=== PATIENT | male | born 1955 | race Caucasian/White ===

== ENCOUNTER 2016-07-17 08:36 | Inpatient (IN) | payer OTHER, MEDICAID ==
[~2016-07-17] VITALS: Ht 167.6 cm; Wt 80.8 kg
[2016-07-17] VITALS (12 sets, daily range): BP systolic 129–147; BP diastolic 77–98; PULSE 84–100; RESP 18–20; O2SAT 90–97
[~2016-07-17 08:36] MED LIST: ALBU18HF INH; FLUT12AE4 INH; HYDR25TA4 PO; METO50TA3 PO; MIRT15TA6 PO; NITR0.4T6 SL; SERT100T9 PO; SYMINH INH
--- NOTE | 2016-07-17 08:48 | ED.REPORT ---
HPI-Abd Pain M 40 and Over Date of Service Jul 17, 2016 ED Provider: Angelina Person MD Nursing Notes Stated Complaint: ABDOMINAL PAIN Chief Complaint: Male Abdominal Pain Nursing Notes Reviewed: Yes Allergies: Coded Allergies: lisinopril (Verified Allergy, Severe, ANGIODEDEMA, 07/17/16) codeine (Verified Allergy, Unknown, 07/17/16) Scheduled Budesonide/Formoterol 160-4.5 mcg Inh (Symbicort 160-4.5 mcg Inh) 120 Puff Inhaler 2 PUFFS INH BID Hydrochlorothiazide (Hydrochlorothiazide) 25 Mg Tablet 25 MG PO DAILY Metoprolol Tartrate (Metoprolol Tartrate) 50 Mg Tablet 50 MG PO BID Sertraline HCl (Sertraline) 100 Mg Tablet 100 MG PO BID Scheduled PRN Albuterol Sulfate (Ventolin HFA Inhaler) 200 Puff/18 Gm Inhaler 2 PUFFS INH Q4H PRN PRN For Shortness of Breath Fluticasone/Salmeterol (Advair Hfa 115-21 Mcg Inhaler) 12 Gm Hfa.aer.ad 1-2 PUFF INH HS PRN PRN For Shortness of Breath Mirtazapine (Mirtazapine) 15 Mg Tablet 15 MG PO HS PRN PRN Insomnia Nitroglycerin SL (Nitroglycerin SL) 0.4 Mg Tab.subl 0.4 MG SL PRN PRN PRN For Chest Pain 1 TAB SL Q5MIN UP TO 3 DOSES FOR CP, CALL 911 IF UNRELIEVED General Time Seen by MD: 08:48 Chief Complaint Abdominal pain Hx Obtained From: Patient Arrived By: Walk-in Sudden in Onset?: No Onset Occurred: 3 days ago Symptom Duration: Since onset Location: : Abdomen lower Quality: Painful Associated with: Reports: Nausea Pertinent Negative: Pt denies other symptoms Past Medical History Past Medical History Pneumonia IBS Reports: Hypertension Reports: Atrial fibrillation Past Surgical History Cardiac catheterization Ankle surgery Smoking History Current Every Day Smoker Social History +alcohol use in the past Other Social History: Local resident Ambulatory Status Independent Review of Systems GI: Reports: Abdominal pain Complete sys rev & neg: except as marked. Physical Exam Initial Vital Signs Vital Signs (First) Date Time Temp Pulse Resp B/P Pulse Ox O2 Delivery O2 Flow Rate FiO2 07/17/16 08:41 38.7 84 20 147/98 94 Room Air Initial VS: Reviewed Interpretation & Diagnostics Lab Results Interpretation Result Diagram: 07/17/16 0850 Test 07/17/16 08:50 White Blood Count 11.0th/mm3 (3.8-10.1) Red Blood Count 4.38mil/mm3 (4.40-5.80) Hemoglobin 14.9g/dL (13.8-17.2) Hematocrit 42.4% (41.0-50.0) Mean Corpuscular Volume 96.8fL (81-100) Mean Corpuscular Hemoglobin 34.0pg (27.0-35.0) Mean Corpuscular Hemoglobin Concent 35.1% (32.0-37.0) Red Cell Distribution Width 13.0% (12.3-15.4) Platelet Count 188bil/L (150-400) Neutrophils (%) (Auto) 82.2% (40-74) Lymphocytes (%) (Auto) 8.2% (14-46) Monocytes (%) (Auto) 7.3% (4-12) Eosinophils (%) (Auto) 1.5% (0-5) Basophils (%) (Auto) 0.4% (0-3) Re-Eval/Medical Decision Source of Hx: Old records Counseled Regarding: Diagnosis, Lab results Discharge & Departure Vital Signs - All Vital Signs Date Time Temp Pulse Resp B/P Pulse Ox O2 Delivery O2 Flow Rate FiO2 07/17/16 08:41 38.7 84 20 147/98 94 Room Air )( All Prior VS Reviewed: Yes Condition: Stable Referrals: OSVALDO JEFFREY DO (PCP) Saloni Attestation Portions of this note were transcribed by Abram Sampson. I, Dr. Person, personally performed the history, physical exam and medical decision-making; I reviewed and confirmed the accuracy of the information in the transcribed note. Signed by: Saloni Ríos, 07/17/2016 and [time]. copies to: OSVALDO JEFFREY Shawna L MD Jul 17, 2016 08:48 ABRAM SAMPSON Jul 17, 2016 08:55
[2016-07-17 09:02] LABS: BASOPHILS % (AUTO) 0.4 % (0-3); EOSINOPHILS % (AUTO) 1.5 % (0-5); MONOCYTES % (AUTO) 7.3 % (4-12); Mean Corpuscular Volume 96.8 fL (81-100); NEUTROPHILS % (AUTO) 82.2 % (40-74); Platelet Count 188 bil/L (150-400)
--- NOTE | 2016-07-17 09:21 | ED.REPORT ---
HPI-Abd Pain M 40 and Over Date of Service Jul 17, 2016 ED Provider: Jono Wiseman MD Pt is a 61 y/o male w/ a hx of ulcerative colitis, IBS, COPD, prev H. pylori, HTN, presenting to the ED c/o gradually worsening, intermittent, sharp LLQ abdominal pain onset 2 days ago. He c/o associated decreased urination, difficulty urinating, nausea, confusion, dry heaving, fever. His last bowel movement was yesterday morning. He denies bloody stool, melena, CP, SOB, dysuria. He has never experienced similar symptoms. His last colonoscopy was 7- 8 years ago. He has no history of abdominal surgeries. He has a family history of Crohn's disease. Nursing Notes Stated Complaint: ABDOMINAL PAIN Chief Complaint: Male Abdominal Pain Nursing Notes Reviewed: Yes Allergies: Coded Allergies: lisinopril (Verified Allergy, Severe, ANGIODEDEMA, 07/17/16) codeine (Verified Allergy, Unknown, 07/17/16) Scheduled Budesonide/Formoterol 160-4.5 mcg Inh (Symbicort 160-4.5 mcg Inh) 120 Puff Inhaler 2 PUFFS INH BID Hydrochlorothiazide (Hydrochlorothiazide) 25 Mg Tablet 25 MG PO DAILY Metoprolol Tartrate (Metoprolol Tartrate) 50 Mg Tablet 50 MG PO BID Sertraline HCl (Sertraline) 100 Mg Tablet 100 MG PO BID Scheduled PRN Albuterol Sulfate (Ventolin HFA Inhaler) 200 Puff/18 Gm Inhaler 2 PUFFS INH Q4H PRN PRN For Shortness of Breath Mirtazapine (Mirtazapine) 15 Mg Tablet 15 MG PO HS PRN PRN Insomnia Nitroglycerin SL (Nitroglycerin SL) 0.4 Mg Tab.subl 0.4 MG SL PRN PRN PRN For Chest Pain 1 TAB SL Q5MIN UP TO 3 DOSES FOR CP, CALL 911 IF UNRELIEVED General Time Seen by MD: 09:14 Chief Complaint Abdominal pain Hx Obtained From: Patient Arrived By: Walk-in Sudden in Onset?: No Onset Occurred: 2 days ago Symptom Duration: Since onset Progression since Onset: Intermittent Location: : LLQ Quality: Painful Severity: Current: Moderate Severity: Maximum: Severe Similar Sx Previous: No Past Medical History Past Medical History Pneumonia IBS COPD Hypertension Ulcerative colitis hx H. pylori Anxiety Valvular disease s/p replacement Past Surgical History Cardiac catheterization Valve replacement Ankle surgery Smoking History Current Every Day Smoker Social History +alcohol use in the past Other Social History: Local resident Ambulatory Status Independent Review of Systems Constitutional: Reports: Fever Respiratory: Denies: Shortness of breath Cardiovascular: Denies: Chest pain GI: Reports: Abdominal pain, Nausea, Denies: Bloody/tarry stool, Melena Male: Reports Urination decreased, Denies Dysuria Complete sys rev & neg: except as marked. Neurologic: Reports: Confusion Physical Exam Initial Vital Signs Vital Signs (First) Date Time Temp Pulse Resp B/P Pulse Ox O2 Delivery O2 Flow Rate FiO2 07/17/16 08:41 38.7 84 20 147/98 94 Room Air Initial VS: Reviewed, Vital signs abnormal Head / Eyes: Atraumatic, Normocephalic, PERRL Neck: Supple, Full range of motion Extremities: Vascular intact, Neuro intact, No swelling, No tenderness Skin: Warm, Dry, No cyanosis Neurologic: Alert, Oriented, Nonfocal Psychiatric: Mood/affect normal, Behavior normal, Normal thought content General/Constitutional: Awake, Alert, Cooperative, Not toxic appearing Appearance / Presentation: Positive: Uncomfortable Respiratory / Chest: Atraumatic, Breath sounds NL, Breath sounds = bilat, No respiratory distress, No rales, No rhonchi, No wheezing, No retractions, No stridor, No chest tenderness, No chest wall deformity, No crepitus Cardiovascular: Heart rate NL, Regular rhythm, Heart sounds NL, No gallop, No murmurs, No rubs, Cap refill not delayed, Peripheral circulation NL Abdomen: Atraumatic, Soft, No rebound Tenderness/Guarding/Rebound: Positive: Tender LLQ... (Moderate), Tender diffuse (mild) Bowel Sounds / Distention: Positive: Bowel sounds tympanitic, Distention moderate Some rigidity to palpation of the LLQ Back: Full range of motion, Painless range of motion ENT: Atraumatic, Airway patent Mouth: Positive: Mucous membranes dry Interpretation & Diagnostics Lab Results Interpretation Result Diagram: 07/17/16 0850 07/17/16 0850 Test 07/17/16 08:50 07/17/16 10:00 White Blood Count 11.0th/mm3 (3.8-10.1) Red Blood Count 4.38mil/mm3 (4.40-5.80) Hemoglobin 14.9g/dL (13.8-17.2) Hematocrit 42.4% (41.0-50.0) Mean Corpuscular Volume 96.8fL (81-100) Mean Corpuscular Hemoglobin 34.0pg (27.0-35.0) Mean Corpuscular Hemoglobin Concent 35.1% (32.0-37.0) Red Cell Distribution Width 13.0% (12.3-15.4) Platelet Count 188bil/L (150-400) Neutrophils (%) (Auto) 82.2% (40-74) Lymphocytes (%) (Auto) 8.2% (14-46) Monocytes (%) (Auto) 7.3% (4-12) Eosinophils (%) (Auto) 1.5% (0-5) Basophils (%) (Auto) 0.4% (0-3) Sodium Level 135mEq/L (134-144) Potassium Level 3.8mEq/L (3.5-5.2) Chloride Level 89mEq/L (97-108) Carbon Dioxide Level 28mmol/L (18-29) Blood Urea Nitrogen 14mg/dL (8-27) Creatinine 0.87mg/dL (0.76-1.27) Estimat Glomerular Filtration Rate 95mL/min (>59) Glucose Level 160mg/dL (60-99) Lactic Acid Level 2.2mmol/L (0.4-2.0) Calcium Level 9.4mg/dL (8.5-10.1) Magnesium Level 1.4mg/dL (1.6-2.6) Total Bilirubin 0.9mg/dL (0.0-1.2) Aspartate Amino Transf (AST/SGOT) 42U/L (0-50) Alanine Aminotransferase (ALT/SGPT) 58U/L (0-44) Alkaline Phosphatase 68U/L (25-160) Troponin T 0.010ug/L (0.0-0.011) Total Protein 8.2g/dL (6.4-8.4) Albumin 4.4g/dL (3.4-5.0) Urine Color Yellow (YELLOW) Urine Appearance Clear (CLEAR,HAZY) Urine pH 6.0 (5.0-8.0) Urine Specific [place] 1.010 (1.003-1.035) Urine Protein Negativemg/dL (NEG,TRACE) Urine Glucose (UA) Negativemg/dL (NEGATIVE) Urine Ketones Negativemg/dL (NEGATIVE) Urine Occult Blood Negative (NEGATIVE) Urine Nitrite Negative (NEGATIVE) Urine Bilirubin Negative (NEGATIVE) Urine Urobilinogen Normalmg/dL (NORMAL) Urine Leukocyte Esterase Negative (NEGATIVE) Urine RBC 0-2/hpf (0-2) Urine WBC 0-5/hpf (0-5) Urine Epithelial Cells Occasional/hpf (NONE-MOD) Urine Crystals None seen (NONE SEEN) Urine Bacteria None/hpf (NONE-FEW) Urine Hyaline Casts Occasional/lpf (NONE) Urine Granular Casts None seen (NONE SEEN) Urine Waxy Casts None seen (NONE SEEN) Urine Red Blood Cell Casts None seen (NONE SEEN) Urine White Blood Cell Casts None seen (NONE SEEN) Urine Mucus None seen (None Seen) Urine Trichomonas None seen (NONE SEEN) Urine Yeast None (NONE SEEN) Urinalysis Comment None Urine Culture Reflexed Not indicated ECG Interpretation ECG Interpretation: Sinus rhythm rate [address] depression just over 1 mm that appears to be isolated to lead V4 Compared to prior dated 05/07/15, ST depression is new but there are otherwise no acute changes present Time: 09:21 Interpreted by: ED physician Normal ECG Interpretation: No acute ischemic changes X-Ray Chest Interpretation Chest Xray Interpretation: IMPRESSION: Bibasilar atelectasis versus aspiration or pneumonia. Correlate clinically. Dictated by: Juan Matute RRA Interpreted: Clau Driscoll MD on 07/17/2016 at 9:47 Transcribed by: TROY on 07/17/2016 at 9:47 View: Portable, 1 view Interpretation / Wet Read by: Interpret - Radiologist CT Abd / Pelvis Interpretation IMPRESSION: 1. Acute diverticulitis in the proximal sigmoid colon with an associated small focus of extraluminal gas consistent with microperforation. Amount of free fluid also demonstrated without evidence of abscess. 2. Hepatic steatosis. Dictated by: Delmer Tello M.D. on 07/17/2016 at 10:19 Approved by: Delmer Tello M.D. on 07/17/2016 at 10:28 Study type: Abdominal CT IV contrast Interpretation / Wet Read by: Interpret - Radiologist Re-Eval/Medical Decision Med Decision/Clinical Course In summary, the patient is a 61-year-old male in generally good health with self -reported history of ulcerative colitis though currently not on any medications who presents with several days of severe/worsening left lower quadrant pain associated with nausea and decreased appetite. He states that he has never had similar pain in the past. Upon arrival the patient is afebrile stable vital signs that he appears very uncomfortable with significant tenderness of his left lower quadrant. Meds given: IV fluids, Zofran, Dilaudid, Cipro, Flagyl Labs notable as below: CBC: Leukocytosis of 11, HCT of 42.4 CMP: Mildly elevated ALT of 58, lactate of 2.2, good renal function, no significant electrolyte abnormalities Troponin: negative CT abdomen/pelvis w/ contrast notable for: Acute diverticulitis with small perforation without sign of abscess. Given the above CT findings and history overall presentation seems consistent with acute diverticulitis and microperforation. Patient started on IV antibiotics and pain medications as well as fluids. At this time no evidence of acute surgical process. Patient admitted to hospitalist service with plan for ongoing IV antibiotics, serial abdominal examinations and consultation for surgical evaluation as needed. Patient was transferred in stable condition. Time of Eval: 10:34 Patient Status: Condition improved, Mild relief Re-Evaluation/Progress Note: Pt rechecked. Remains uncomfortable. Discussed admit vs discharge. He would like to be admitted for pain and other symptom control. I believe this is appropriate at this time. Pt understands and agrees with plan for admission. All questions addressed. Counseled Regarding: Diagnosis, Lab results, Need for admission Discharge & Departure Primary Impression: Diverticulitis Diverticulitis site: unspecified part of intestinal tract Diverticulitis bleeding: without bleeding Diverticulitis complication: with perforation Qualified Code: K57.80 - Diverticulitis of intestine, part unspecified, with perforation and abscess without bleeding Additional Impressions: Hepatic steatosis Large bowel perforation Abdominal pain Abdominal location: left lower quadrant Qualified Code: R10.32 - Left lower quadrant pain Leukocytosis Leukocytosis type: unspecified Qualified Code: D72.829 - Elevated white blood cell count, unspecified Disposition: ADMITTED TO HOSPITAL (ERASED) Vital Signs - All Vital Signs Date Time Temp Pulse Resp B/P Pulse Ox O2 Delivery O2 Flow Rate FiO2 07/17/16 10:55 84 18 145/78 Room Air 07/17/16 08:41 38.7 84 20 147/98 94 Room Air )( All Prior VS Reviewed: Yes Condition: Stable Referrals: OVSALDO JEFFREY DO (PCP) Saloni Attestation Portions of this note were transcribed by Dusty Del Cid. I, Dr. Wiseman personally performed the history, physical exam and medical decision-making; I reviewed and confirmed the accuracy of the information in the transcribed note. Signed by Saloni Boles, 07/17/16 - 2158 copies to: OSVALDO JEFFREY Beck O MD Jul 17, 2016 09:21 DUSTY DEL CID Jul 17, 2016 09:22
[2016-07-17 09:28] LABS: TROPONIN T 0.01 ug/L (0.0-0.011)
[2016-07-17] MEDS ORDERED: 0.9% Sodium Chloride 1,000 ML IV ONE (09:31)
[2016-07-17] MEDS ORDERED: HYDROmorphone 0.5 mg/0.5 mL iSecure Syringe IVPUSH PRN (09:35)
[2016-07-17] MEDS ORDERED: Ondansetron 2 mg/mL 2 mL Inj IVPUSH ONE (09:35)
[2016-07-17 09:40] LABS: Magnesium 1.4 mg/dL (1.6-2.6)
--- NOTE | 2016-07-17 09:48 | DRSVH ---
PROCEDURE: X-RAY CHEST ONE VIEW, PORTABLE ([id number]) INDICATIONS: FEVER, R/O SEPSIS TECHNIQUE: One view of the chest was acquired. COMPARISON: [facility], , CHEST 1VW (PORTABLE), 09/09/2012, 5:28. FINDINGS: Surgical changes and devices: None. Lungs and pleura: No pleural effusions or pneumothorax. Lungs are clear, aside from bibasilar patch y airspace opacities. Mediastinum: Mediastinal contours appear normal. Heart size is normal. Bones and chest wall: No suspicious bony lesions. Overlying soft tissues appear unremarkable. IMPRESSION: Bibasilar atelectasis versus aspiration or pneumonia. Correlate clinically. Dictated by: Juan Matute RRA Interpreted: Clau Driscoll MD on 07/17/2016 at 9:47 Transcribed by: TROY on 07/17/2016 at 9:47 Approved by: Clau Driscoll MD, PhD on 07/17/2016 at 17:00
--- NOTE | 2016-07-17 10:30 | DRSVH ---
PROCEDURE: CT ABDOMEN AND PELVIS WITH CONTRAST ([id number]) INDICATIONS: Severe LLQ pain and history of ulcerative colitis. TECHNIQUE: After the administration of oral and intravenous contrast, 5 mm thick sections acquired from the diap hragms to the symphysis. 5 mm thick coronal and sagittal reformats were performed. For radiation do se reduction, the following was used: automated exposure control, adjustment of mA and/or kV accordi ng to patient size. COMPARISON: [facility], CT, ABD/PELVIS W/CON ([facility]), 06/20/2010, 15:48. FINDINGS: Image quality: Excellent. ABDOMEN: Lung bases: Lung bases are clear. Heart size is normal. Solid organs: There is hypoattenuation of the liver consistent with fatty infiltration. The spleen i s normal in size. Gallbladder appears within normal limits without calcified gallstones. Biliary sy stem is non-dilated. Pancreas enhances normally. No adrenal nodules. Kidneys are normal in size an d enhancement, without hydronephrosis. Peritoneum and bowel: Stomach and small bowel loops are normal in caliber and wall thickness. The a ppendix is normal in appearance. There is colonic diverticulosis with associated segmental wall thic kening and inflammatory fat stranding at the junction of the descending and sigmoid colon consistent with acute diverticulitis. There is a small focus of associated extraluminal gas consistent with a m icroperforation. A small amount of free fluid is also demonstrated along the left paracolic gutter a nd along the sigmoid mesocolon. No diverticular abscess collection. Nodes and vessels: No retroperitoneal or mesenteric adenopathy. Aorta and inferior vena cava are no rmal in caliber. Miscellaneous: No ventral hernias. PELVIS: Genitourinary: Bladder wall thickness is normal. Miscellaneous: No inguinal hernias or adenopathy. Bones: No suspicious bony lesions. No vertebral body compression fractures. IMPRESSION: 1. Acute diverticulitis in the proximal sigmoid colon with an associated small focus of extraluminal gas consistent with microperforation. Amount of free fluid also demonstrated without evidence of ab scess. 2. Hepatic steatosis. Dictated by: Delmer Tello M.D. on 07/17/2016 at 10:19 Approved by: Delmer Tello M.D. on 07/17/2016 at 10:28
[2016-07-17] MEDS ORDERED: Ondansetron 2 mg/mL 2 mL Inj IVPUSH PRN ×2 (10:35→15:05)
[2016-07-17] MEDS ORDERED: Alum-Mag Hydrox-Simeth 30 mL Suspension PO PRN (10:35)
[2016-07-17] MEDS ORDERED: metroNIDAZOLE Inj 500 MG in IV Premix 1 EACH IV ONE (10:40)
[2016-07-17] MEDS ORDERED: Ciprofloxacin Inj 400 MG in IV Premix 1 EACH IV ONE (10:40)
[2016-07-17 10:41] LABS: APPEARANCE,URINE CLEAR (CLEAR,HAZY); COLOR,URINE YELLOW (YELLOW); OCCULT BLOOD,URINE NEGATIVE (NEGATIVE); UROBILINOGEN,URINE NORMAL (NORMAL)
--- NOTE | 2016-07-17 12:31 | PCM.HPMED ---
Subjective Date of Service Jul 17, 2016 Primary Provider: Admitting Physician: Shimon Louis MD Primary Care Physician: Marlena Zacarias DO Attending Physician: Sihmon Louis MD Chief Complaint: worsening abdominal pain History of Present Illness: 61yo M w/ COPD, hypertension, history of H. pylori, history hep C s/p Harvoni, ? IBS, ?UC p/w acute onset of abdominal pain for 2 days pt was USOH until 2days, started having sharp LLQ pain, until this happened, pt was eating well, good appetite, having regular BM. then pain was gradually worsened to the point when he couldn't sleep at all last night, call his doctor who recommended to come to ED. pt hasn't eaten anything since yesterday morning , had last normal BM, not bloody or black stools, normal having 2BM a day. pt felt also very weak, didn't take temp at home, denied any vomiting but had dry heaving. denied chest pain/palpitation. pt never had similar episode before, pt stated that he was diagnosed UC 2yrs ago, however, not offered any tx, had last colonscopy 8yrs ago, was told that he is good for another 10yrs. pt denied hx of IBS. pt also got treated for H.pylori 8yrs ago, denied any regular heartburn , epigastric pain. ROS; pt also noticed his urine got concentrated, kaye, amount also decreased. no chest pain, palpitation, recent travel, sick contacts. Review of Systems: Pertinent positives as noted in history of present illness. All other systems were reviewed and are negative Allergies Coded Allergies: lisinopril (Verified Allergy, Severe, ANGIODEDEMA, 07/17/16) codeine (Verified Allergy, Unknown, 07/17/16) Home Medications Scheduled Budesonide/Formoterol 160-4.5 mcg Inh (Symbicort 160-4.5 mcg Inh) 120 Puff Inhaler 2 PUFFS INH BID Hydrochlorothiazide (Hydrochlorothiazide) 25 Mg Tablet 25 MG PO DAILY Metoprolol Tartrate (Metoprolol Tartrate) 50 Mg Tablet 50 MG PO BID Sertraline HCl (Sertraline) 100 Mg Tablet 100 MG PO BID Scheduled PRN Albuterol Sulfate (Ventolin HFA Inhaler) 200 Puff/18 Gm Inhaler 2 PUFFS INH Q4H PRN PRN For Shortness of Breath Mirtazapine (Mirtazapine) 15 Mg Tablet 15 MG PO HS PRN PRN Insomnia Nitroglycerin SL (Nitroglycerin SL) 0.4 Mg Tab.subl 0.4 MG SL PRN PRN PRN For Chest Pain 1 TAB SL Q5MIN UP TO 3 DOSES FOR CP, CALL 911 IF UNRELIEVED PMH PMH IBS, COPD Hypertension Ulcerative colitis hx H. pylori Anxiety Valvular disease s/p replacement Past Surgical History Cardiac catheterization Valve replacement Ankle surgery Smoking History Current Every Day Smoker Social History +alcohol use in the past Other Social History: Local resident Ambulatory Status Independent Social History Hx Alcohol Use: Yes (BEER; MAYBE ONE/DAY. CUT BACK FROM HEAVY USE 03/2016) Hx Substance Use: No Hx Tobacco Use: Yes (1/2 pkg a day) Smoking Status: Current Every Day Smoker Exam Vital Signs Vital Sign - Last Date Time Temp Pulse Resp B/P Pulse Ox O2 Delivery O2 Flow Rate FiO2 07/17/16 11:38 38.7 84 18 145/78 94 Room Air Exam NAD, comfortably laying down on the bed no JVD, MMM, no LAD RRR, nl s1, s2 no mrg CTAB, no w,c S,ND,LLQ-tender, hypoactive BS+, mild guarding, no rTD. warm, no edema, pulses 2/2 Lab and Diagnostics Result Diagram: 07/17/16 0850 07/17/16 0850 X-Rays, CTs and MRIs PROCEDURE: CT ABDOMEN AND PELVIS WITH CONTRAST ([id number]) INDICATIONS: Severe LLQ pain and history of ulcerative colitis. TECHNIQUE: After the administration of oral and intravenous contrast, 5 mm thick sections acquired from the diaphragms to the symphysis. 5 mm thick coronal and sagittal reformats were performed. For radiation dose reduction, the following was used : automated exposure control, adjustment of mA and/or kV according to patient size. COMPARISON: [facility], CT, ABD/PELVIS W/CON ([facility]), 06/20/2010, 15:48. FINDINGS: Image quality: Excellent. ABDOMEN: Lung bases: Lung bases are clear. Heart size is normal. Solid organs: There is hypoattenuation of the liver consistent with fatty infiltration. The spleen is normal in size. Gallbladder appears within normal limits without calcified gallstones. Biliary system is non-dilated. Pancreas enhances normally. No adrenal nodules. Kidneys are normal in size and enhancement, without hydronephrosis. Peritoneum and bowel: Stomach and small bowel loops are normal in caliber and wall thickness. The appendix is normal in appearance. There is colonic diverticulosis with associated segmental wall thickening and inflammatory fat stranding at the junction of the descending and sigmoid colon consistent with acute diverticulitis. There is a small focus of associated extraluminal gas consistent with a microperforation. A small amount of free fluid is also demonstrated along the left paracolic gutter and along the sigmoid mesocolon. No diverticular abscess collection. Nodes and vessels: No retroperitoneal or mesenteric adenopathy. Aorta and inferior vena cava are normal in caliber. Miscellaneous: No ventral hernias. PELVIS: Genitourinary: Bladder wall thickness is normal. Miscellaneous: No inguinal hernias or adenopathy. Bones: No suspicious bony lesions. No vertebral body compression fractures. IMPRESSION: 1. Acute diverticulitis in the proximal sigmoid colon with an associated small focus of extraluminal gas consistent with microperforation. Amount of free fluid also demonstrated without evidence of abscess. 2. Hepatic steatosis. Dictated by: Delmer Tello M.D. on 07/17/2016 at 10:19 Approved by: Delmer Tello M.D. on 07/17/2016 at 10:28 12-lead ECG sinus86, incomplete RBBB(old) Assessment & Plan 61yo M w/ COPD, hypertension, history of H. pylori, history hep C s/p Harvoni, ? IBS, ?UC p/w acute onset of abdominal pain for 2 days, found to have acute diverticulitis with microperforation on CAT scan. Acute, active Intractable abdominal pain, POA, secondary to acute diverticulitis with microperforation, no abscesses based on CT of abdomen/pelvis with contrast. SIRS + 3/4fever+/wbc/RR, HD stable, s/p flagyl/cipro in ED -surgery consulted, appreciate input -start pain control with dilaudid [employer] -bowel rest with strict NPO, -150cc/hr normal saline -will continue flagyl, levaquin for intra-abdominal infection. -telemetry, monitor hemodynamics closely #Sepsis with SIRS+, due to acute diverticulitis as above chronic, stable hx of H.pylori sp abx, remote, stable hx of HepC s/p Harvoni, last VL undectable per pt. COPD, continue symbicort, albuterol prn HTN, held home BP med for now depression/anxiety continue sertraline active smoking, start nicotine patch UC/IBS, this is unclear from patient's statement, regardless, unlikely contributing to current presentation given clear diverticulitis on CT. dispo:Patient will be admitted with inpatient status with expectation of inpatient therapy for more than 2 midnights diet:NPO for now dvt ppx:LMWH Full Code Time spent 65min Shimon Louis MD Jul 17, 2016 12:25
[2016-07-17] MEDS ORDERED: Albuterol-Ipratropium 3 mL Inhalation Solution NEB PRN (12:35)
--- NOTE | 2016-07-17 13:40 | NUR ---
Admit Note Pt admitted from ED into [facility] [place], [place] 239[place]1. Pt reports abd pain at 4/10, describing it as "sharp" but declines any pain medicine for now; states this is "tolerable" for him. 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 Pt able to recall all of his home medications from memory. Pt calm and coop with care, cont to monitor.
[2016-07-17] MEDS: 0.9% Sodium Chloride 1,000 ML IV SCH (13:44)
[2016-07-17] MEDS ORDERED: Magnesium Sulf 2 Gm/50mL Water 2 GM in IV Premix 1 EACH IV ONE (14:15)
[2016-07-17] MEDS ORDERED: MetoCLOpramide 5 mg/mL 2 mL Inj IVPUSH PRN (15:05)
[2016-07-17] MEDS ORDERED: Ondansetron 8 mg ODT Tablet PO PRN (15:05)
[2016-07-17] MEDS ORDERED: HYDROmorphone 1 mg/mL Inj IVPUSH PRN ×2 (15:05)
[2016-07-17] MEDS ORDERED: HYDROmorphone PCA 0.2 mg/mL 30 mL Inj - Standard IV PRN (15:05)
[2016-07-17] MEDS: levoFLOXacin Inj 750 MG in IV Premix 1 EACH IV SCH (15:06)
--- NOTE | 2016-07-17 17:09 | NUR ---
Pain Pt complaining of sharp abdominal pain "11/18". Abdomen is tender and distended. Given IV morphine x1 per MD orders. Pt reports that it was effective in reducing pain. 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 On continuous pulse ox. Continue to monitor.
[2016-07-17] MEDS: metroNIDAZOLE Inj 500 MG in IV Premix 1 EACH IV SCH (18:09)
--- NOTE | 2016-07-17 19:47 | CONS ---
[address] [address] CONSULTATION REPORT PATIENT: VILMA FOSTER : 1955 MR#: [id number] ADMIT: 07/17/2016 JOB ID: [id number] DATE OF SERVICE: 07/17/2016 REQUESTED BY: Shimon Louis MD HISTORY OF PRESENT ILLNESS: The patient is a 61-year-old man with a 2-day history of left lower quadrant pain. A CT scan was obtained today this morning and that shows findings consistent with diverticulitis with a small focus of extraluminal air. He has never had similar symptoms. His pain is localized to the left lower quadrant. He had no evidence of free uncontained perforation by CT and no abscess. He says he has never had abdominal surgery. He said he had a colonoscopy by Dr. Porter. It was performed February 2011. There was no evidence of colitis, polyps, masses. Diverticulosis actually were not described. He was told that he would need to have a colonoscopy in 10 years. PAST MEDICAL HISTORY: Illnesses: 1. History of hepatitis C. 2. History of H. pylori. 3. History of hypertension. 4. History of COPD. MEDICATIONS AT HOME: 1. Budesonide. 2. Hydrochlorothiazide. 3. Metoprolol. 4. Sertraline. OPERATIONS: Valve replacement. I do not have any details. He has had an operation on his ankle. He has had no abdominal surgery. HABITS: Smokes every day. SOCIAL HISTORY: He is unemployed. He lives in [place]. PHYSICAL EXAMINATION: He is alert, very cooperative, but appears older than stated age. BMI 28.8, temperature is 38.1, brachial blood pressure 142/96, pulse 100, respiratory rate 18, O2 sat 93. HEENT: PERRLA. EOMI. No scleral icterus. Neck: No masses. Lungs: Clear. Cardiac exam: Regular rhythm. Abdomen: He has left lower quadrant tenderness. He has no other quadrant tenderness. He does not have diffuse peritonitis. Extremities: Long bones, stable. Skin: Nonjaundiced. Neurologic exam: Appropriate affect. Moves all extremities. No obvious cranial nerve deficits. Gait not tested. LABORATORY STUDIES: White blood cell count is 11.0, hematocrit is 42, platelet count 188,000. Electrolytes are normal. Creatinine 0.87. Glucose 160. Lactic acid is 2.2-2.3. CT scan is personally reviewed by myself. IMPRESSION: Diverticulitis. All diverticulitis is a perforation. It is not surprisingly that we occasionally see some free air because the whole etiology of the disease is a perforation of the diverticulum. He does not have diffuse peritonitis. He does not have uncontained free air. He does not need to go to the operating room. He can have clear liquids and I would continue him on broad-spectrum antibiotics. He is currently on metronidazole and Levaquin which I think is an adequate combination. I will plan to follow up with you. SRIDHAR
[2016-07-17] MEDS: Fluticasone-Salmeterol 100-50 Inhaler INHALATION SCH (19:55)
[2016-07-18] VITALS (7 sets, daily range): BP systolic 118–167; BP diastolic 80–94; PULSE 84–138; RESP 16–24; O2SAT 94–97
[2016-07-18] MEDS: 0.9% Sodium Chloride 1,000 ML IV SCH ×3 (00:33→07:48)
[2016-07-18] MEDS: metroNIDAZOLE Inj 500 MG in IV Premix 1 EACH IV SCH ×2 (00:34→09:25)
--- NOTE | 2016-07-18 06:22 | NUR ---
Activity Abdominal pain 3-10/18. Pt taught about PET CAREGIVER use due to high number of denied doses. PT on continuous pulse ox sats 92-97. Had several instances during the night in which pt sats were in high 80s.
[2016-07-18 06:55] LABS: BASOPHILS % (AUTO) 0.2 % (0-3); EOSINOPHILS % (AUTO) 1.6 % (0-5); MONOCYTES % (AUTO) 5.2 % (4-12); Mean Corpuscular Hemoglobin 33.9 pg (27.0-35.0); Mean Corpuscular Volume 100.3 fL (81-100); NEUTROPHILS % (AUTO) 83.7 % (40-74); Platelet Count 152 bil/L (150-400)
[2016-07-18 07:13] LABS: Magnesium 1.8 mg/dL (1.6-2.6)
[2016-07-18] MEDS: levoFLOXacin Inj 750 MG in IV Premix 1 EACH IV SCH (07:44)
[2016-07-18] MEDS: Fluticasone-Salmeterol 100-50 Inhaler INHALATION SCH (08:15)
--- NOTE | 2016-07-18 10:07 | NUR ---
Elevated HR Pt with elevated HR shortly after 0700, 130's-140's. Pt asymptomatic with this, denied any palpitations, SOB, or chest pain. Pt given scheduled Metoprolol 50mg after 0800. Pt's tele now SR in the 80's. Pt has c/o of 4/10 abd pain, but states this is tolerable for him. 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 Pt has denied any nausea, tolerating clear liquid diet now. Pt calm and coop with care, cont to monitor.
[2016-07-18] MEDS ORDERED: LEVO750T9 PO (10:44)
[2016-07-18] MEDS ORDERED: METR500T19 PO (10:44)
[2016-07-18] MEDS ORDERED: OXYC1TAB24 PO (10:44)
--- NOTE | 2016-07-18 10:49 | PCM.DIMED ---
Discharge Instructions Date of Service Jul 18, 2016 Dates of Hospitalization Jul 17, 2016 at 11:56 Discharge Diagnosis Discharge Diagnosis acute diverticulitis with microperforation Patient Instructions You were hospitalized with acute abdominal pain, found to have deverticulitis, treated with antibiotics. Although we recommend you to stay in the hospital, You are leaving against medical advice. You understand that the result of leaving against medical advice could be life threatening, not limited to , sepsis, intractable abdominal pain. You stated that you are willing to take the risks of leaving the hospital. Please note that you will be given antibiotics, please continue it for 12more days. Follow-up plan Please follow up with your doctor in 1-2weeks Follow-up Provider: Marlena Zacarias DO Follow-up with PCP in: 2 weeks Shimon Louis MD Jul 18, 2016 10:49
--- NOTE | 2016-07-18 11:34 | NUR ---
AMA Pt insisting to leave today by 1200. "I was given the option yesterday to leave or stay overnight for observation, and I feel fine now" Pt able to meet with Dr. Louis. Reviewed AMA form with pt, pt signed form and prescriptions were given and reviewed. Pt ready for discharge home with all belongings, waiting for ride home.
--- NOTE | 2016-07-18 15:26 | PCM.DC.MED ---
Discharge Summary Date of Service Jul 18, 2016 Dates of Hospitalization Date of Hospital Admission Jul 17, 2016 at 11:56 Date of Discharge: Jul 18, 2016 Providers: Admitting Physician: Shimon Koenig MD Primary Care Physician: Marlena Zacarias DO Attending Physician: Shimon Koenig MD Diagnosis at Time of Discharge Diagnosis at Time of Discharge Intractable abdominal pain acute diverticulitis with microperforation Sepsis secondary to acute diverticulitis chronic, stable hx of H.pylori sp abx, hx of HepC s/p Harvoni, COPD, HTN, depression/anxiety active smoking, UC/IBS, Procedures XRay, CTs & MRIs PROCEDURE: CT ABDOMEN AND PELVIS WITH CONTRAST (FORMERLY NAMED [id number]) INDICATIONS: Severe LLQ pain and history of ulcerative colitis. TECHNIQUE: After the administration of oral and intravenous contrast, 5 mm thick sections acquired from the diaphragms to the symphysis. 5 mm thick coronal and sagittal reformats were performed. For radiation dose reduction, the following was used : automated exposure control, adjustment of mA and/or kV according to patient size. COMPARISON: [facility], CT, ABD/PELVIS W/CON (PN), 06/20/2010, 15:48. FINDINGS: Image quality: Excellent. ABDOMEN: Lung bases: Lung bases are clear. Heart size is normal. Solid organs: There is hypoattenuation of the liver consistent with fatty infiltration. The spleen is normal in size. Gallbladder appears within normal limits without calcified gallstones. Biliary system is non-dilated. Pancreas enhances normally. No adrenal nodules. Kidneys are normal in size and enhancement, without hydronephrosis. Peritoneum and bowel: Stomach and small bowel loops are normal in caliber and wall thickness. The appendix is normal in appearance. There is colonic diverticulosis with associated segmental wall thickening and inflammatory fat stranding at the junction of the descending and sigmoid colon consistent with acute diverticulitis. There is a small focus of associated extraluminal gas consistent with a microperforation. A small amount of free fluid is also demonstrated along the left paracolic gutter and along the sigmoid mesocolon. No diverticular abscess collection. Nodes and vessels: No retroperitoneal or mesenteric adenopathy. Aorta and inferior vena cava are normal in caliber. Miscellaneous: No ventral hernias. PELVIS: Genitourinary: Bladder wall thickness is normal. Miscellaneous: No inguinal hernias or adenopathy. Bones: No suspicious bony lesions. No vertebral body compression fractures. IMPRESSION: 1. Acute diverticulitis in the proximal sigmoid colon with an associated small focus of extraluminal gas consistent with microperforation. Amount of free fluid also demonstrated without evidence of abscess. 2. Hepatic steatosis. Dictated by: Delmer Tello M.D. on 07/17/2016 at 10:19 Approved by: Delmer Tello M.D. on 07/17/2016 at 10:28 ECG 12 Lead sinus86, incomplete RBBB(old) Brief History H&P performed by Dr. Koenig on 07/17 61yo M w/ COPD, hypertension, history of H. pylori, history hep C s/p Harvoni, ? IBS, ?UC p/w acute onset of abdominal pain for 2 days pt was USOH until 2days, started having sharp LLQ pain, until this happened, pt was eating well, good appetite, having regular BM. then pain was gradually worsened to the point when he couldn't sleep at all last night, call his doctor who recommended to come to ED. pt hasn't eaten anything since yesterday morning , had last normal BM, not bloody or black stools, normal having 2BM a day. pt felt also very weak, didn't take temp at home, denied any vomiting but had dry heaving. denied chest pain/palpitation. pt never had similar episode before, pt stated that he was diagnosed UC 2yrs ago, however, not offered any tx, had last colonscopy 8yrs ago, was told that he is good for another 10yrs. pt denied hx of IBS. pt also got treated for H.pylori 8yrs ago, denied any regular heartburn , epigastric pain. ROS; pt also noticed his urine got concentrated, kaye, amount also decreased. no chest pain, palpitation, recent travel, sick contacts. Hospital Course 61yo M w/ COPD, hypertension, history of H. pylori, history hep C s/p Harvoni, ? IBS, ?UC p/w acute onset of abdominal pain for 2 days, found to have acute diverticulitis with microperforation on CAT scan. Acute, active Intractable abdominal pain, POA, secondary to acute diverticulitis with microperforation, no abscesses based on CT of abdomen/pelvis with contrast. SIRS + 3/4fever+/wbc/RR, HD stable, s/p flagyl/cipro in ED. surgery consulted, recommended medical treatment. 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 Diet was advanced to clears per Dr. Bellamy. Patient was given IV fluid. On the day 2, patient was significantly agitated, left AGAINST MEDICAL ADVICE. He was reminded multiple times explicitly that patient has life-threatening condition which require further hospitalization, leaving AMA can result in an expected outcomes such as , septic shock, intractable abdominal pain. Patient was able to understand the risks of leaving AMA. Therefore, prescriptions for Levaquin/flagyl given to finish 14days, percocet prn for pain. Patient was strongly advised to return to hospital if symptoms get worse #Sepsis with SIRS+, due to acute diverticulitis as above chronic, stable hx of H.pylori sp abx, remote, stable hx of HepC s/p Harvoni, last VL undectable per pt. COPD, continue symbicort, albuterol prn HTN, held home BP med given sepsis depression/anxiety continue sertraline active smoking, start nicotine patch UC/IBS, this is unclear from patient's statement, regardless, unlikely contributing to current presentation given clear diverticulitis on CT. Exam Vital Signs (Last) Date Time Temp Pulse Resp B/P Pulse Ox O2 Delivery O2 Flow Rate FiO2 07/18/16 10:45 16 95 07/18/16 10:14 87 07/18/16 07:42 Supplement Oxygen 07/18/16 07:39 118/80 3.00 07/18/16 05:44 36.9 Exam NAD, comfortably laying down on the bed no JVD, MMM, no LAD RRR, nl s1, s2 no mrg CTAB, no w,c S,ND, diffuse tenderness throughout, hypoactive BS warm, no edema, pulses 2/2 Test 07/17/16 08:50 07/17/16 10:00 07/17/16 17:00 07/18/16 06:15 Troponin T 0.010ug/L (0.0-0.011) Urine Color Yellow (YELLOW) Urine Appearance Clear (CLEAR,HAZY) Urine pH 6.0 (5.0-8.0) Urine Specific [place] 1.010 (1.003-1.035) Urine Protein Negativemg/dL (NEG,TRACE) Urine Glucose (UA) Negativemg/dL (NEGATIVE) Urine Ketones Negativemg/dL (NEGATIVE) Urine Occult Blood Negative (NEGATIVE) Urine Nitrite Negative (NEGATIVE) Urine Bilirubin Negative (NEGATIVE) Urine Urobilinogen Normalmg/dL (NORMAL) Urine Leukocyte Esterase Negative (NEGATIVE) Urine RBC 0-2/hpf (0-2) Urine WBC 0-5/hpf (0-5) Urine Epithelial Cells Occasional/hpf (NONE-MOD) Urine Crystals None seen (NONE SEEN) Urine Bacteria None/hpf (NONE-FEW) Urine Hyaline Casts Occasional/lpf (NONE) Urine Granular Casts None seen (NONE SEEN) Urine Waxy Casts None seen (NONE SEEN) Urine Red Blood Cell Casts None seen (NONE SEEN) Urine White Blood Cell Casts None seen (NONE SEEN) Urine Mucus None seen (None Seen) Urine Trichomonas None seen (NONE SEEN) Urine Yeast None (NONE SEEN) Urinalysis Comment None Urine Culture Reflexed Not indicated Lactic Acid Level 1.2mmol/L (0.4-2.0) White Blood Count 9.5th/mm3 (3.8-10.1) Red Blood Count 3.57mil/mm3 (4.40-5.80) Hemoglobin 12.1g/dL (13.8-17.2) Hematocrit 35.8% (41.0-50.0) Mean Corpuscular Volume 100.3fL (81-100) Mean Corpuscular Hemoglobin 33.9pg (27.0-35.0) Mean Corpuscular Hemoglobin Concent 33.8% (32.0-37.0) Red Cell Distribution Width 13.1% (12.3-15.4) Platelet Count 152bil/L (150-400) Neutrophils (%) (Auto) 83.7% (40-74) Lymphocytes (%) (Auto) 8.9% (14-46) Monocytes (%) (Auto) 5.2% (4-12) Eosinophils (%) (Auto) 1.6% (0-5) Basophils (%) (Auto) 0.2% (0-3) Sodium Level 135mEq/L (134-144) Potassium Level 3.2mEq/L (3.5-5.2) Chloride Level 94mEq/L (97-108) Carbon Dioxide Level 29mmol/L (18-29) Blood Urea Nitrogen 9mg/dL (8-27) Creatinine 0.72mg/dL (0.76-1.27) Estimat Glomerular Filtration Rate 118mL/min (>59) Glucose Level 121mg/dL (60-99) Calcium Level 7.4mg/dL (8.5-10.1) Phosphorus Level 2.0mg/dL (2.5-4.9) Magnesium Level 1.8mg/dL (1.6-2.6) Total Bilirubin 1.3mg/dL (0.0-1.2) Aspartate Amino Transf (AST/SGOT) 25U/L (0-50) Alanine Aminotransferase (ALT/SGPT) 34U/L (0-44) Alkaline Phosphatase 56U/L (25-160) Total Protein 6.3g/dL (6.4-8.4) Albumin 3.5g/dL (3.4-5.0) Discharge Medications Discharge Medications Budesonide/Formoterol 160-4.5 mcg Inh (Symbicort 160-4.5 mcg Inh) 120 Puff Inhaler 2 PUFFS INH BID (Reported) Hydrochlorothiazide (Hydrochlorothiazide) 25 Mg Tablet 25 MG PO DAILY (Reported ) Levofloxacin (Levaquin) 750 Mg Tablet 750 MG PO DAILY Prescribed by: SHIMON KOENIG MD Metoprolol Tartrate (Metoprolol Tartrate) 50 Mg Tablet 50 MG PO BID (Reported) Metronidazole (Metronidazole) 500 Mg Tablet 500 MG PO TID Prescribed by: SHIMON KOENIG MD Sertraline HCl (Sertraline) 100 Mg Tablet 100 MG PO BID (Reported) As needed Albuterol Sulfate (Ventolin HFA Inhaler) 200 Puff/18 Gm Inhaler 2 PUFFS INH Q4H PRN PRN For Shortness of Breath (Reported) Mirtazapine (Mirtazapine) 15 Mg Tablet 15 MG PO HS PRN PRN Insomnia (Reported) Nitroglycerin SL (Nitroglycerin SL) 0.4 Mg Tab.subl 0.4 MG SL PRN PRN PRN For Chest Pain (Reported) 1 TAB SL Q5MIN UP TO 3 DOSES FOR CP, CALL 911 IF UNRELIEVED oxyCODONE-Acetaminophen 5-325 mg (oxyCODONE-Acetaminophen 5-325 mg) 1 Each Tablet 1 TAB PO Q4H PRN PRN For Pain Prescribed by: SHIMON KOENIG MD Followup Plan Disposition: Home, left AGAINST MEDICAL ADVICE Follow-up plan Please follow up with your doctor in 1-2weeks Patient Instructions You were hospitalized with acute abdominal pain, found to have deverticulitis, treated with antibiotics. Although we recommend you to stay in the hospital, You are leaving against medical advice. You understand that the result of leaving against medical advice could be life threatening, not limited to , sepsis, intractable abdominal pain. You stated that you are willing to take the risks of leaving the hospital. Please note that you will be given antibiotics, please continue it for 12more days. Follow-up Provider: Marlena Zacarias DO Follow-up with PCP in: 2 weeks Time spent 65 minutes Shimon Koenig MD Jul 18, 2016 15:26
== END 2016-07-18 12:12 | disposition left against medical advice (07) | DRG 244 ==
LOC: SED 08:36 → MOC 11:56
PROVIDERS: ADMIT Internal Medicine; ATTEND Internal Medicine
DX: K57.20 Diverticulitis of large intestine with perforation and abscess without bleeding (principal); J44.9 Chronic obstructive pulmonary disease, unspecified; I10 Essential (primary) hypertension; F17.210 Nicotine dependence, cigarettes, uncomplicated; F41.8 Other specified anxiety disorders